=== PATIENT | female | born 1985 | race American Indian/Alaskan Native ===

== ENCOUNTER 2020-10-31 01:34 | Observation (INO) | payer MEDICAID ==
[2020-10-31] MEDS ORDERED: LACTATED RINGERS 500 ML IV ONE (01:46)
[2020-10-31] MEDS ORDERED: ACETAMINOPHEN 500 MG TAB PO ONE (01:57)
[2020-10-31 02:23] LABS: Basophils # (Auto) 0.1 K/mm3 (0.0-0.1); Basophils % (Auto) 0.6 % (0.0-1.8); Eosinophils # (Auto) 0.2 K/mm3 (0.0-0.4); Eosinophils % (Auto) 2.2 % (0.0-4.3); Hemoglobin 10.4 gm/dl (10.1-14.3); Lymphocytes # (Auto) 2.2 K/mm3 (1.2-5.4); Mean Corpuscular HGB Conc 34 % (30-34); Mean Corpuscular Volume 91 fl (79-97); Monocytes # (Auto) 1.2 K/mm3 (0.0-0.8); Monocytes % (Auto) 10.9 % (0.0-7.3); Platelet Count 251 K/mm3 (140-440); Red Blood Count 3.39 M/mm3 (3.65-5.03)
[2020-10-31] MEDS ORDERED: TERBUTALINE 1 MG/1 ML INJ SUB-Q ONE (02:23)
[2020-10-31 02:28] LABS: Bacteria,Urine 3+ /HPF (Negative); Bilirubin,Urine NEG (Negative); Blood,Urine NEG (Negative); Color,Urine Colorless (Yellow); Protein,Urine <15 mg/dL mg/dL (Negative); Urobilinogen,Urine < 2.0 mg/dL (<2.0)
[2020-10-31] MEDS ORDERED: LACTATED RINGERS 1,000 ML IV PRN (02:29)
--- NOTE | 2020-10-31 02:50 | Event Note ---
Date: 10/31/20 (Abdominal pain) Pt is a 35 y.o. @ 25 wks + with c/o ctxs and feeling lower abdominal pressure. She has a history of with uterine dehiscence. EFM initiated upon arrival to triage and cervical exam completed. Cervical exam cl/30/-3 to -4. After cervical exam patient stated that she already is starting to feel better and that the pain in her lower abdomen has gone away. IV fluids started and patient to receive a dose of terb. On monitor, uterine irritability noted. Explained to patient that we will monitor her and her baby for about an hour or two and if no ctxs present, lower abdominal pain has gone away, and her cervix is unchanged, we will send her home with follow up in the office either today or early next week. We also discussed that if her her lower abdominal pressure and pain does not go away we will admit her to observation status so that we can monitor her and the baby a little more closely. Pt verbalized understanding.
[2020-10-31] MEDS ORDERED: ACETAMINOPHEN 500 MG TAB PO PRN (03:03)
[2020-10-31] MEDS ORDERED: ONDANSETRON 4 MG/2 ML INJ IV PRN (03:03)
[2020-10-31] MEDS ORDERED: ALUM-MAG HYDROXIDE-SIMETHICONE 200-200-20MG/5ML ORAL LIQD 30 ML PO PRN (03:03)
[2020-10-31] MEDS ORDERED: MAGNESIUM HYDROXIDE (MOM) ORAL LIQD UDC PO PRN (03:03)
[2020-10-31] MEDS ORDERED: SODIUM CHLORIDE NASAL SPRAY 44ML NS PRN (03:03)
[2020-10-31] MEDS ORDERED: DOCUSATE SODIUM 100 MG CAP PO PRN (03:03)
--- NOTE | 2020-10-31 03:11 | History and Physical Report ---
History of Present Illness Date of examination: 10/31/20 (Lower abdominal pain and pressure) Date of admission: 10/31/2020 Chief complaint: I've been having a lot of lower abdominal pain and pressure for the last few days. Tonight I couldn't take the pressure and pain anymore. History of present illness: C/o ctxs, lower abdominal pain and pressure that has been going on for the last few days and tonight the pain had become more intense. Past History : 5 Term Births: 2 Premature Births: 2 Living Children: 4 Para: 3 Mult. Births: 1 Prev : 3 Aborta: 1 Elect. Ab: 0 Spont. Ab: 1 Ectopics: 0 # 1 Delivery date: 07/17/2011 Weeks Gestation: 40 Delivery type: Anesthesia type: epidural Delivery location: [facility] Sex: male weight: 6.44 Comments: Failure of dilatation # 2 Delivery date: 06/12 Delivery type: SAB Comments: No D&C # 3 Delivery date: 05/02/2013 Weeks Gestation: 34.1 Delivery type: Anesthesia type: epidural Infant Sex: female/male weight: 4 Comments: labor Twin B wt 4lbs 4oz apgars of 7/9 and 1and 5min # 4 Delivery date: 11/08/2014 Weeks Gestation: 39 Delivery type: Anesthesia type: epidural Delivery location: [facility] Sex: male weight: 8.75 Comments: Uterine window with dehiscence Risk Factors: Smoked Tobacco Use: Never smoker Smokeless Tobacco Use: Never Passive smoke exposure: no Drug use: no HIV high-risk behavior: no Alcohol use: no Exercise: yes Times per week: 7 Type of Exercise: walking Seatbelt use: 100 % Past Medical History: Reviewed history from 03/16/2014 and no changes required: Shoulder impringement 2010 IBS-C Past Surgical History: Reviewed history from 10/24/2012 and no changes required: Shoulder surgery Past Medical History Surgery (Non-weaving professor): Shoulder surgery Abnormal PAP: positive 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 of genital herpes: no Partner hx. of genital herpes: no Rash, Viral, or Febrile illness since last LMP? no Varicella/Chicken Pox Status: Previous Disease Genetic History Congenital Heart Defect: Mom: no Dad: no Shaquille Disease: Mom: no Dad: no Thalassemia Mom: no Dad: no Neural Tube Defect Mom: no Dad: no Down's Syndrome Mom: no Dad: no Luke-Sachs Mom: no Dad: no Sickle Cell Disease/Trait Mom: yes Dad: no Comments: uncle + SCT Hemophilia Mom: no Dad: no Muscular Dystrophy Mom: no Dad: no Cystic Fibrosis Mom: no Dad: no [place] Chorea Mom: no Dad: no Mental Retardation Mom: no Dad: no Fragile X Mom: no Dad: no Other Genetic/Chromosomal Disorder Mom: no Dad: no Child w/other defect Mom: no Dad: no Enviromental Exposures Xray Exposure: no Medication, drug, or alcohol use since LMP: no Chemical/Other Exposure: no Exposure to Cat Liter: no Hx of Parvovirus (Fifth Disease): no Occupational Exposure to Children: none Comments: virtual teacher Active Medications (reviewed today): IBUPROFEN 800 MG ORAL TABLET (IBUPROFEN) 1 tab PO q8 hours prn pain IBUPROFEN TABLET (IBUPROFEN TABS) PERCOCET 5-325 MG ORAL TABLET (OXYCODONE-ACETAMINOPHEN) 1 -2 po q 4 hrs prn pain PLUS 27-1 MG ORAL TABLET ( VIT-FE FUMARATE-FA) 1 tablet po q day as directed Current Allergies (reviewed today): CODEINE (Critical) * TOMATO SAUCE (Critical) * LATEX (Critical) * MILK (Critical) Past History Past Medical History: no pertinent history Past Surgical History: section (X 3, last in 2014 with uterine window and dehiscence.) Family/Genetic History: none Social history: no significant social history - Obstetrical History Expected Date of Delivery: 02/10/21 Actual Gestation: 25 Week(s) 3 Day(s) : 5 Para: 4 Hx # Term Pregnancies: 2 Number of Pregnancies: 2 Spontaneous Abortions: 1 Induced : 0 Number of Living Children: 4 Medications and Allergies Allergies Allergy/AdvReac Type Severity Reaction Status Date / Time codeine Allergy Intermediate Itching Verified 10/28/14 12:19 Home Medications Medication Instructions Recorded Confirmed Last Taken Type Pnv No.118/Iron Fumarate/FA 1 tab PO DAILY 08/22/14 11/08/14 08/27/14 History [ 19 Chewable] Acetaminophen [Acetaminophen TAB] 1 tab PO DAILY 08/29/14 11/08/14 10/27/14 18:00 History 2 Cephalexin [Keflex] 500 mg PO Q6H #28 capsule 08/31/14 11/08/14 Unknown Rx Fluconazole 150 mg PO ONCE #1 tablet 08/31/14 11/08/14 Unknown Rx Fluticasone [Flonase] 2 spray NS BID #120 bottle 08/31/14 11/08/14 Unknown Rx Docusate Sodium [Colace] 100 mg PO BID PRN #60 capsule 11/07/14 Unknown Rx Ibuprofen [Motrin] 800 mg PO Q8H PRN #30 tablet 11/07/14 Unknown Rx oxyCODONE /ACETAMINOPHEN [Percocet 1 - 2 tab PO Q6HR PRN #30 tablet 11/07/14 Unknown Rx 5/325] HYDROcodone/ACETAMINOPHEN 1 - 2 tab PO Q6H PRN #30 tablet 11/08/14 Unknown Rx [HYDROcodone-Acetaminophen 5-300 mg] Lidocain2.5%/Prilocai2.5% [Emla] 5 gm TP ONCE #1 tube 11/10/14 Unknown Rx Active Meds: Active Medications Lactated Ringer's (Lactated Ringers) 1,000 mls @ 999 mls/hr IV BOLUS PRN PRN Reason: Uterine Irritability Last Admin: 10/31/20 02:28 Dose: 999 mls/hr Documented by: - Vital Signs Vital signs: Vital Signs Pulse Pulse Ox 66 99 10/31/20 01:53 10/31/20 01:53 Temp Pulse Resp BP Pulse Ox 97 H 125/78 100 10/31/20 03:00 10/31/20 02:01 10/31/20 03:00 - Physical Exam Breasts: Positive: deferred Cardiovascular: Regular rate, Normal S1, Normal S2 Lungs: Positive: Clear to auscultation Abdomen: Positive: normal appearance, soft, normal bowel sounds. Negative: distention, tenderness Genitourinary (Female): Positive: normal external genitalia, normal perenium Vulva: both: normal Vagina: Positive: normal moisture. Negative: discharge Cervix: Negative: lesion, discharge Uterus: Positive: normal size, normal contour Adnexa: both: normal Anus/Rectum: Positive: normal perianal skin, heme negative. Negative: rectal mass, hemorrhoids Extremities: Positive: normal Deep Tendon Reflex Grade: Normal +2 - Obstetrical FHR: auscultation normal (Appropriate for gestational age. ) Uterine Contraction Monitor Mode: External Cervical Dilatation: 0 Cervical Effacement Percentage: 30 station: -4 Uterine Tone Measurement Phase: Uterine irritability noted Results Result Diagrams: 10/31/20 02:00 Abnormal lab results 10/31/20 10/31/20 Range/Units 02:00 02:00 RBC 3.39 L (3.65-5.03) M/mm3 Slope % (Auto) 10.9 H (0.0-7.3) % Slope # (Auto) 1.2 H (0.0-0.8) K/mm3 Ur Specific [place] 1.002 L (1.003-1.030) All other labs normal. HBsAg Screen Negative Negative *1 RPR Non Reactive Non Reactive *2 Rubella Antibodies, IgG 11.40 index Immune >0.99 *3 Non-immune <0.90 Equivocal 0.90 - 0.99 Immune >0.99 ABO Grouping O *4 Rh Factor Positive *5 Please note: Prior records for this patient's ABO / Rh type are not available for additional verification. Antibody Screen Negative Negative *6 Tests: (2) HIV Ag/Ab with Reflex ([id number]) HIV Screen 4th Generation wRfx Non Reactive Non Reactive *31 Tests: (3) HCV Ab w/Rflx to Verification (330202) ! HCV Ab 0.1 s/co ratio 0.0-0.9 *32 Tests: (4) Comment: ([id number]) ! Comment: SPRCS *33 Non reactive HCV antibody screen is consistent with no HCV infection, unless recent infection is suspected or other evidence exists to indicate HCV infection. Assessment and Plan A: 35 y.o. @ 25.3 wks with c/o abdominal pain, previous X3, uterine dehiscence in last . With abdominal pain. - Patient Problems (1) 25 to 26 weeks gestation of Onset Date: ~10/31/20 Current Visit: Yes Status: Acute Plan to address problem: Monitor status through EFM. (2) Abdominal pain affecting , antepartum Onset Date: ~10/31/20 Current Visit: Yes Status: Acute Plan to address problem: Will admit to observation on labor and delivery. IV fluids to be given. Extra Strength Tylenol. Will monitor for worsening s/sx of labor.
[2020-10-31] MEDS ORDERED: LACTATED RINGERS 1,000 ML IV SCH (03:15)
--- NOTE | 2020-10-31 08:08 | Discharge Summary ---
Providers - Providers Date of Admission: 10/31/20 03:03 Date of discharge: 10/31/20 Attending physician: MABLE MILLAN Primary care physician: MABLE MILLAN Hospitalization Reason for admission: labor ( complicated by previous uterine dehiscence) Hospital course: IVF hydration and rest Condition at discharge: Good Disposition: DC-01 TO HOME OR SELFCARE - Discharge Diagnoses (1) Dehiscence of uterine wound Status: Acute (2) 25 to 26 weeks gestation of Status: Acute (3) Abdominal pain in Status: Acute (4) Previous delivery affecting , antepartum Status: Acute Plan - Provider Discharge Summary Diet: routine Instructions: routine Additional instructions: [] Smoking cessation referral if applicable(refer to patient education folder for contact #) [] Refer to [facility] Book[facility] Call your doctor immediately for: * Fever > 100.5 * Heavy vaginal bleeding ( >1 pad per hour) * Severe persistent headache * Shortness of breath * Reddened, hot, painful area to leg or breast * Drainage or odor from incision. * Keep incision clean and dry at all times and follow doctor's instructions regarding bathing/showering - Follow up plan Follow up: MABLE MILLAN MD [Primary Care Provider] - 7 Days (Keep appointment in office for 3 hour glucose test and appointment for MRI on Wednesday. Next [facility] appointment scheduled for 11/18/2020. Stay on house rest and increase hydration. Call [phone] for any questions or concerns. )
[2020-10-31 09:49] VITALS: BP 123/78
[2020-10-31] MEDS ORDERED: PRENATAL VIT27-FE FUMARATE-FOLIC ACID VIT TAB PO SCH (10:00)
== END 2020-10-31 12:00 | disposition home or self-care (01) ==
LOC: TRG 01:34 → APU 01:38 → LD 03:03 → TRG 03:03
PROVIDERS: ADMIT Obstetrics & Gynecology; ATTEND Obstetrics & Gynecology
DX: O26.892 Other specified pregnancy related conditions, second trimester (principal); Z20.828 Contact with and (suspected) exposure to other viral communicable diseases; T81.30XS Disruption of wound, unspecified, sequela; Z3A.25 25 weeks gestation of pregnancy; Z98.891 History of uterine scar from previous surgery
CPT/HCPCS: 36415; 59025; 81001; 85025; 86592; 86850; 86900; 86901; 96360; 96361; 96372; G0378; J3105; J7120; U0003

== ENCOUNTER 2020-12-05 14:47 | Outpatient (CLI) | payer MEDICAID ==
[2020-12-05 15:22] VITALS: BP 107/58
[2020-12-05 15:57] LABS: Bacteria,Urine 1+ /HPF (Negative); Bilirubin,Urine NEG (Negative); Blood,Urine NEG (Negative); Color,Urine Yellow (Yellow); Mucus,Urine FEW /HPF; Protein,Urine <15 mg/dL mg/dL (Negative); Urobilinogen,Urine < 2.0 mg/dL (<2.0); WBC,Urine < 1.0 /HPF (0.0-6.0)
[2020-12-05 15:59] LABS: RBC,Urine < 1.0 /HPF (0.0-6.0)
[2020-12-05] MEDS ORDERED: LACTATED RINGERS 1,000 ML IV SCH (16:30)
== END 2020-12-05 17:33 | disposition home or self-care (01) ==
LOC: TRG 14:47 → APU 14:49 → TRG 17:33
PROVIDERS: ATTEND Obstetrics & Gynecology
DX: O47.1 False labor at or after 37 completed weeks of gestation (principal); Z3A.30 30 weeks gestation of pregnancy
CPT/HCPCS: 59025; 81001

== ENCOUNTER 2020-12-28 09:16 | Outpatient (CLI) | payer MEDICAID ==
[2020-12-28] MEDS ORDERED: BETAMET ACET/BETAMET NA PH 6 MG/ML INJ 5 ML MDV IM ONE (10:00)
== END 2020-12-28 09:50 | disposition home or self-care (01) ==
LOC: TRG 09:16 → APU 09:17 → TRG 09:50
PROVIDERS: ATTEND Obstetrics & Gynecology
DX: O47.03 False labor before 37 completed weeks of gestation, third trimester (principal); Z3A.33 33 weeks gestation of pregnancy
CPT/HCPCS: 96372; J0702

== ENCOUNTER 2021-01-15 18:35 | Inpatient (IN) | payer MEDICAID ==
[2021-01-15] MEDS ORDERED: hydrALAZINE 20 MG/1 ML INJ IV PRN (18:40)
--- NOTE | 2021-01-15 18:53 | History and Physical Report ---
History of Present Illness Date of examination: 01/15/21 Chief complaint: Elevated Blood pressures, SOTO and LE swelling History of present illness: Malena is a 35-year-old female postop day #15 from [facility] for suspected placenta percreta. Her course has been complicated by possible depression. Patient is complaining of a headache with swelling. Her initial blood pressure office at her 1 week postop visit was 108/76. While following up with patient goal today by telemedicine visit she continued to complain of headache and swelling. She called back to the office the blood pressure of 149/89. While at [facility] visiting her daughter that was still in the NICU her blood pressures were checked in triage and noted to be 140s over 80s which are significantly elevated from her last visit. She admitted now for MgSO4 prophylaxis for PP Preeclampsia Past History : 5 Term Births: 2 Premature Births: 3 Living Children: 5 Para: 4 Mult. Births: 1 Prev : 4 Aborta: 1 Elect. Ab: 0 Spont. Ab: 1 Ectopics: 0 # 1 Delivery date: 07/17/2011 Weeks Gestation: 40 Delivery type: Anesthesia type: epidural Delivery location: [facility] Infant Sex: male weight: 6.44 Comments: Failure of dilatation # 2 Delivery date: 06/12 Delivery type: SAB Comments: No D&C # 3 Delivery date: 05/02/2013 Weeks Gestation: 34.1 Delivery type: Anesthesia type: epidural Infant Sex: female/male weight: 4 Comments: labor Twin B wt 4lbs 4oz apgars of 7/9 and 1and 5min # 4 Delivery date: 11/08/2014 Weeks Gestation: 39 Delivery type: Anesthesia type: epidural Delivery location: [facility] Sex: male weight: 8.75 Comments: Uterine window with dehiscence #5 Delivery Date: 12/31/2020 Gestational Age: 34 1/7 weeks Anesthesia: spinal/epidural Delivery Type: Weight: 5.75 lbs Gender: female Location: [facility] Complications: CLASSICAL INCISION, dense adhesions at an undeveloped REKHA, NO Precreta, (B) salpingectomy : 1 minute: 6 5 minutes: 8 Risk Factors: Smoked Tobacco Use: Never smoker Smokeless Tobacco Use: Never Passive smoke exposure: no Drug use: no HIV high-risk behavior: no Alcohol use: no Exercise: yes Times per week: 7 Type of Exercise: walking Seatbelt use: 100 % Past Medical History: Reviewed history from 03/16/2014 and no changes required: Shoulder impringement 2010 IBS-C Past Surgical History: Reviewed history from 10/24/2012 and no changes required: C-sectionx4 Shoulder surgery (B) salpingectomy for sterilziation Past Medical History Surgery (Non-gynecological assistant): Shoulder surgery Abnormal PAP: positive 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 of genital herpes: no Partner hx. of genital herpes: no Rash, Viral, or Febrile illness since last LMP? no Varicella/Chicken Pox Status: Previous Disease Genetic History Congenital Heart Defect: Mom: no Dad: no Shaquille Disease: Mom: no Dad: no Thalassemia Mom: no Dad: no Neural Tube Defect Mom: no Dad: no Down's Syndrome Mom: no Dad: no Luke-Sachs Mom: no Dad: no Sickle Cell Disease/Trait Mom: yes Dad: no Comments: uncle + SCT Hemophilia Mom: no Dad: no Muscular Dystrophy Mom: no Dad: no Cystic Fibrosis Mom: no Dad: no [place] Chorea Mom: no Dad: no Mental Retardation Mom: no Dad: no Fragile X Mom: no Dad: no Other Genetic/Chromosomal Disorder Mom: no Dad: no Child w/other defect Mom: no Dad: no Enviromental Exposures Xray Exposure: no Medication, drug, or alcohol use since LMP: no Chemical/Other Exposure: no Exposure to Cat Liter: no Hx of Parvovirus (Fifth Disease): no Occupational Exposure to Children: none Comments: virtual teacher Active Medications (reviewed today): IBUPROFEN 800 MG ORAL TABLET (IBUPROFEN) 1 tab PO q8 hours prn pain PERCOCET 5-325 MG ORAL TABLET (OXYCODONE-ACETAMINOPHEN) 1 -2 po q 4 hrs prn pain PLUS 27-1 MG ORAL TABLET ( VIT-FE FUMARATE-FA) 1 tablet po q day as directed Current Allergies (reviewed today): CODEINE (Critical) * TOMATO SAUCE (Critical) * LATEX (Critical) * MILK (Critical) Past History - Obstetrical History : 6 Medications and Allergies Allergies Allergy/AdvReac Type Severity Reaction Status Date / Time codeine Allergy Intermediate Itching Verified 10/28/14 12:19 milk Allergy Itching Verified 12/29/20 10:30 Milk Containing Products Allergy Nausea Verified 12/29/20 10:30 tomato Allergy Itching Verified 12/29/20 10:30 latex AdvReac Severe Rash Verified 12/05/20 15:23 Home Medications Medication Instructions Recorded Confirmed Last Taken Type Pnv No.118/Iron Fumarate/FA 1 tab PO DAILY 08/22/14 01/02/21 12/30/20 08:00 History [ 19 Chewable] Acetaminophen [Acetaminophen TAB] 1 tab PO DAILY 08/29/14 01/02/21 11/04/20 History Cephalexin [Keflex] 500 mg PO Q6H #28 capsule 08/31/14 01/02/21 11/05/20 Rx Fluconazole 150 mg PO ONCE #1 tablet 08/31/14 01/02/21 12/30/20 Rx Fluticasone [Flonase] 2 spray NS BID #120 bottle 08/31/14 01/02/21 12/30/20 Rx Docusate Sodium [Colace] 100 mg PO BID PRN #60 capsule 11/07/14 01/02/21 12/30/20 Rx Ibuprofen [Motrin] 800 mg PO Q8H PRN #30 tablet 11/07/14 01/02/21 12/02/20 Rx oxyCODONE /ACETAMINOPHEN [Percocet 1 - 2 tab PO Q6HR PRN #30 tablet 11/07/14 0 01/02/21 11/06/20 Rx 5/325] HYDROcodone/ACETAMINOPHEN 1 - 2 tab PO Q6H PRN #30 tablet 11/08/14 01/02/21 12/02/20 Rx [HYDROcodone-Acetaminophen 5-300 mg] Lidocain2.5%/Prilocai2.5% [Emla] 5 gm TP ONCE #1 tube 11/10/14 01/02/21 12/04/20 Rx Docusate Sodium [Colace] 100 mg PO BID PRN #30 capsule 12/31/20 Unknown Rx Ferrous Sulfate [Feosol 325 MG tab] 325 mg PO BID #90 tablet 12/31/20 Unknown Rx Ibuprofen [Motrin 800 MG tab] 800 mg PO TID PRN #30 tablet 12/31/20 Unknown Rx oxyCODONE /ACETAMINOPHEN [Percocet 1 - 2 tab PO Q6HR PRN #20 tablet 12/31/20 Unknown Rx 5/325 mg] Active Meds: Active Medications Hydralazine HCl (Hydralazine 20 Mg/1 Ml Inj) 5 mg IV ONCE PRN PRN Reason: Hypertension Lactated Ringer's (Lactated Ringers) 1,000 mls @ 125 mls/hr IV DIRECT ADE Magnesium Sulfate (Magnesium Sulfate 4gm/100ml) 4 gm in 100 mls @ 300 mls/hr IV ONCE ONE Stop: 01/15/21 18:59 Magnesium Sulfate (Magnesium Sulfate 40gm/1000ml) 40 gm in 1,000 mls @ 50 mls/hr IV DIRECT ADE - Physical Exam Breasts: Positive: deferred Lungs: Positive: Normal air movement Results All other labs normal. Assessment and Plan - Patient Problems (1) Preeclampsia in period Status: Acute Plan to address problem: Admit MgSO4 prophylaxis Will start BP meds for SBP 160 or > &/or DBP 100 or > Strict I&O's
[2021-01-15] MEDS ORDERED: MAGNESIUM SULFATE 4 GM/100 ML BAG IV ONE (19:40)
[2021-01-15 19:47] LABS: Bilirubin,Urine NEG (Negative); Blood,Urine MOD (Negative); Color,Urine Yellow (Yellow); Mucus,Urine FEW /HPF; Protein,Urine <15 mg/dL mg/dL (Negative); Urobilinogen,Urine < 2.0 mg/dL (<2.0)
[2021-01-15] MEDS: MAGNESIUM SULFATE 40GM/1000ML 40 GM/1,000 ML BAG IV SCH (20:28)
[2021-01-15] MEDS: LACTATED RINGERS 1,000 ML IV SCH (20:33)
[2021-01-15 20:51] LABS: Hematocrit 29.8 % (30.3-42.9); Hemoglobin 10.1 gm/dl (10.1-14.3); Mean Corpuscular HGB Conc 34 % (30-34); Mean Corpuscular Volume 92 fl (79-97); Platelet Count 388 K/mm3 (140-440); Red Blood Count 3.25 M/mm3 (3.65-5.03); Red Cell Distribution Width 14.5 % (13.2-15.2)
[2021-01-15 21:37] LABS: Alanine Aminotransferase 13 units/L (7-56); Uric Acid 5.3 mg/dL (3.5-7.6)
[2021-01-16] MEDS: LACTATED RINGERS 1,000 ML IV SCH (07:16)
--- NOTE | 2021-01-16 07:24 | Progress Note ---
Assessment and Plan denies SOTO/visual changes/epigastric pain. She reports being tired and worried about how baby is going to get home as NICU is telling her baby has to go home today. b/p's mostly 100's-120's/60-80's with an occasional outlier. reviewed plan of care. all questions addressed. - Patient Problems (1) Preeclampsia in period Current Visit: No Status: Acute Plan to address problem: d/c mag sulate today @ 1999 transfer to [facility] and continue monitoring b/p's overnight. Anticipate d/c home tomorrow. Subjective - Subjective Date of service: 01/16/21 Principal diagnosis: postop day # 16, pre-e readmit Patient reports: appetite normal, pain well controlled, no nauseated : in NICU (pumping breast) Objective - Vital Signs Latest vital signs: Vital Signs Temp Pulse Resp BP BP Pulse Ox 01/16/21 07:17 71 99 01/16/21 07:14 97.6 F 70 14 113/65 98 01/16/21 07:12 69 100 01/16/21 07:09 76 113/65 01/16/21 07:07 65 98 01/16/21 07:02 70 98 01/16/21 06:57 70 98 01/16/21 06:52 67 98 01/16/21 06:47 69 98 01/16/21 06:42 62 97 01/16/21 06:39 69 144/83 01/16/21 06:37 70 99 01/16/21 06:32 69 98 01/16/21 06:27 64 98 01/16/21 06:22 66 98 01/16/21 06:17 65 98 01/16/21 06:12 65 98 01/16/21 06:09 64 119/71 01/16/21 06:07 61 99 01/16/21 06:02 75 98 01/16/21 05:57 68 98 01/16/21 05:52 70 98 01/16/21 05:47 70 98 01/16/21 05:42 66 98 01/16/21 05:39 71 109/74 01/16/21 05:37 67 98 01/16/21 05:32 71 99 01/16/21 05:27 70 100 01/16/21 05:22 66 100 01/16/21 05:18 78 94 01/16/21 05:17 78 94 01/16/21 05:12 67 91 01/16/21 05:09 58 L 124/69 01/16/21 05:07 74 99 01/16/21 05:02 66 98 01/16/21 04:57 62 100 01/16/21 04:52 71 95 01/16/21 04:47 65 89 01/16/21 04:46 73 93 01/16/21 04:42 64 98 01/16/21 04:40 67 91 01/16/21 04:39 62 125/80 01/16/21 04:37 65 99 01/16/21 04:33 69 91 01/16/21 04:32 71 99 01/16/21 04:27 72 100 01/16/21 04:22 70 99 01/16/21 04:17 69 99 01/16/21 04:12 69 98 01/16/21 04:09 62 121/77 01/16/21 04:07 63 98 01/16/21 04:02 73 99 01/16/21 03:57 62 99 01/16/21 03:52 61 99 01/16/21 03:47 61 98 01/16/21 03:42 62 98 01/16/21 03:39 66 150/80 01/16/21 03:37 63 99 01/16/21 03:32 63 99 01/16/21 03:27 63 98 01/16/21 03:22 61 98 01/16/21 03:17 61 98 01/16/21 03:12 61 98 01/16/21 03:09 64 113/72 01/16/21 03:07 68 98 01/16/21 03:02 64 99 01/16/21 02:57 61 99 01/16/21 02:52 61 98 01/16/21 02:47 65 99 01/16/21 02:42 59 L 99 01/16/21 02:39 61 116/76 01/16/21 02:37 54 L 99 01/16/21 02:32 62 99 01/16/21 02:27 56 L 99 01/16/21 02:22 60 98 01/16/21 02:17 64 96 01/16/21 02:12 59 L 99 01/16/21 02:09 57 L 138/76 01/16/21 02:07 58 L 98 01/16/21 02:02 65 98 01/16/21 01:57 61 99 01/16/21 01:52 60 98 01/16/21 01:47 69 99 01/16/21 01:42 60 99 01/16/21 01:39 60 124/78 01/16/21 01:37 59 L 99 01/16/21 01:32 60 99 01/16/21 01:27 57 L 99 01/16/21 01:22 60 98 01/16/21 01:17 55 L 99 01/16/21 01:12 60 99 01/16/21 01:09 59 L 137/79 01/16/21 01:07 63 98 01/16/21 01:02 57 L 99 01/16/21 00:57 69 98 01/16/21 00:52 62 98 01/16/21 00:47 66 98 01/16/21 00:42 67 98 01/16/21 00:39 63 139/77 01/16/21 00:37 67 98 01/16/21 00:32 62 98 01/16/21 00:27 58 L 98 01/16/21 00:22 64 98 01/16/21 00:17 64 98 01/16/21 00:12 67 98 01/16/21 00:09 66 123/71 01/16/21 00:07 69 98 01/16/21 00:02 62 98 01/15/21 23:57 60 98 01/15/21 23:52 64 98 01/15/21 23:47 61 98 01/15/21 23:42 65 98 01/15/21 23:39 64 131/75 01/15/21 23:37 59 L 98 01/15/21 23:32 61 98 01/15/21 23:27 67 98 01/15/21 23:22 68 97 01/15/21 23:17 58 L 99 01/15/21 23:12 69 98 01/15/21 23:09 65 127/82 01/15/21 23:07 57 L 98 01/15/21 23:02 58 L 98 01/15/21 22:57 59 L 99 01/15/21 22:52 55 L 98 01/15/21 22:47 56 L 98 01/15/21 22:42 54 L 98 01/15/21 22:39 52 L 145/80 01/15/21 22:37 54 L 98 01/15/21 22:32 51 L 99 01/15/21 22:27 52 L 99 01/15/21 22:22 51 L 99 01/15/21 22:17 54 L 99 01/15/21 22:12 52 L 99 01/15/21 22:09 62 141/89 01/15/21 22:07 72 100 01/15/21 22:02 60 100 01/15/21 21:57 60 99 01/15/21 21:52 60 100 01/15/21 21:47 62 100 01/15/21 21:42 57 L 100 01/15/21 21:39 59 L 120/76 01/15/21 21:37 63 100 01/15/21 21:32 64 100 01/15/21 21:09 62 139/68 01/15/21 20:58 97.9 F 20 01/15/21 20:34 58 L 135/85 01/15/21 20:29 65 134/83 01/15/21 20:24 59 L 135/82 01/15/21 20:19 62 126/72 01/15/21 20:14 63 145/76 01/15/21 20:09 64 123/69 01/15/21 20:05 63 126/71 01/15/21 19:56 57 L 141/65 Intake and Output 01/15/21 01/15/21 01/16/21 15:59 23:59 07:59 Intake Total 1000 Output Total 650 2100 Balance -650 -1100 Intake: IV 1000 Lactated Ringers 1,000 ml 1000 @ 125 mls/hr IV DIRECT [facility] Rx#:[id number] Output: Urine 650 2100 Indwelling Catheter 650 2100 Other: Total, Output Amount 350 500 Weight 69.4 kg - Exam Breasts: Present: normal, Cardiovascular: Present: Regular rate Lungs: Present: Clear to auscultation, Normal air movement Abdomen: Present: normal appearance, soft, normal bowel sounds Vulva: both: normal Uterus: Present: normal, firm, fundal height below umbilicus Extremities: Present: normal Deep Tendon Reflex Grade: Normal +2 Incision: Present: normal, dry, intact - Labs Labs: Abnormal lab results 01/15/21 01/15/21 01/16/21 Range/Units 20:00 20:00 01:19 RBC 3.25 L (3.65-5.03) M/mm3 Hct 29.8 L (30.3-42.9) % Magnesium 5.50 H (1.7-2.3) mg/dL Lactate Dehydrogenase 269 H (91-180) units/L 01/16/21 Range/Units 06:07 RBC (3.65-5.03) M/mm3 Hct (30.3-42.9) % Magnesium 6.10 H (1.7-2.3) mg/dL Lactate Dehydrogenase (91-180) units/L
[2021-01-16] MEDS ORDERED: ACETAMINOPHEN 500 MG TAB PO PRN (11:08)
[2021-01-16] MEDS: MAGNESIUM SULFATE 40GM/1000ML 40 GM/1,000 ML BAG IV SCH (16:45)
--- NOTE | 2021-01-17 09:10 | Discharge Summary ---
Providers - Providers Date of Admission: 01/15/21 19:05 Attending physician: DEDRICK KO Primary care physician: MABLE MILLAN Hospitalization Reason for admission: other (Elevated blood pressures) Discharge diagnosis: other (s/p magnesium infusion d/t pre eclampsia.) Pertinent studies: Pt denies SOTO, blurred vision, spots before her eyes, chest pain, shortness of breath, and upper abdominal pain. We discussed how to take a proper blood pressure. We also discussed should any of these symptoms occur with or without her blood pressure being 140/90 or greater, to call the millinery salesperson provider for further instructions. Pt verbalized understanding. Hospital course: S: Pt doing well. Voiding, ambulating, and passing flatus. Denies s/sx of pre eclampsia. O: VSS. Adequate I&O's. Blood pressure ranges have been 110's-130's/70-80's. Pre eclampsia labs WNL. A: 35 y.o. s/p rpt approximately 2 wks ago, readmit for pre eclampsia s/p mag infusion. Now in good condition to be discharged home. P: Discharge home with instructions. Pt to keep scheduled telemedicine visit on 01/22. Has blood pressure cuff at home and will take her blood pressure before visit. Condition at discharge: Good Disposition: [id number] TO HOME OR SELFCARE Plan - Provider Discharge Summary Activity: routine, no sex for 6 weeks, no heavy lifting 4 weeks, no strenuous exercise Diet: routine Instructions: routine Additional instructions: [] Smoking cessation referral if applicable(refer to patient education folder for contact #) [] Refer to [facility]'s [facility] Booklet Call your doctor immediately for: * Fever > 100.5 * Heavy vaginal bleeding ( >1 pad per hour) * Severe persistent headache * Shortness of breath * Reddened, hot, painful area to leg or breast * Drainage or odor from incision. * Keep incision clean and dry at all times and follow doctor's instructions regarding bathing/showering Hope on your discharge home you continue to heal well. Please keep your scheduled telemedicine visit on 01/22. Please take your blood pressure as directed. Should you have any questions or concerns after discharge, please do not hesitate to call the office at [phone]. Taking your blood pressure at home Please take your blood pressure at least once daily Taking your blood pressure with a cuff monitor: 1. Put the blood pressure cuff on your arm. 2. Sit with your legs uncrossed and feet flat on the ground. Make sure your arm is relaxed on a table or your kitchen table and bent at a 90 degree angle. 3. After 5-10 minutes push the button to take your blood pressure. While you are at home, if you experience a headache, blurred vision, spots before your eyes, chest pain, shortness of breath, and pain in your upper belly, and/or your blood pressure is 140/90 or greater please call the on-call provider immediately. - Follow up plan Follow up: MABLE MILLAN MD [Primary Care Provider] - 7 Days Forms: Discharge Signature Page
[2021-01-17 09:15] VITALS: BP 120/73
== END 2021-01-17 13:35 | disposition home or self-care (01) | DRG 776 ==
LOC: UNDOADMIN 18:35 → 3A 18:35 → UNDOADMIN 18:40 → LD 18:40 → UNDOADMIN 19:05 → OB 01-16 23:18
PROVIDERS: ADMIT Obstetrics & Gynecology; ATTEND Obstetrics & Gynecology
DX: O14.95 Unspecified pre-eclampsia, complicating the puerperium (principal); O90.89 Other complications of the puerperium, not elsewhere classified; R03.0 Elevated blood-pressure reading, without diagnosis of hypertension; Z91.012 Allergy to eggs; Z91.040 Latex allergy status; Z91.011 Allergy to milk products; Z88.5 Allergy status to narcotic agent; Z91.018 Allergy to other foods; Z79.899 Other long term (current) drug therapy
CPT/HCPCS: 36415; 81001; 82565; 83615; 83735; 84450; 84460; 84550; 85027; G0378; J3475; J7120